=== PATIENT | male | born 1975 | race Caucasian/White ===

== ENCOUNTER 2019-02-26 06:06 | Day surgery (SDC) | payer BC ==
[~2019-02-26] VITALS: Ht 175.3 cm; Wt 71.6 kg
[~2019-02-26 06:06] MED LIST: BENADRYL25 MG PO; CLOB.05TO TOP; CYCL10 PO; FAMO10 PO; NAPROXEN SODIU550 MG PO
--- NOTE | 2019-02-26 12:24 | NUR ---
02/26/19 1224 Trudy Vigil PT IS RESTING IN THE RECLINER, ACCOMPANIED BY HIS . AFTER TRANSERING TO THE CHAIR, PT STATED THAT HE WAS NAUSEATED. RN TREATED WITH IV ZOFRAN PER ORDERS AT 1206. VSS AT THIS TIME. PT STATES NAUSEA IS "BETTER NOW." PT STATES HIS PAIN IS 3/10 AND TOLERABLE AT THIS TIME. RN HAS PROVIDED SNACKS AND WATER. PT IS RESTING WITH EYES CLOSED, COOL WASH CLOTH ON THE FOREHEAD. CALL LIGHT IN REACH.
== END 2019-02-26 13:58 | disposition home or self-care (01) ==
LOC: ORSCSDS 06:06
PROVIDERS: Otolaryngology
PROC: 0NR507Z Replacement of Right Temporal Bone with Autologous Tissue Substitute, Open Approach (ICD-10-PCS; principal; 2019-02-26 07:30)
PROC: 09Q90ZZ Repair Right Auditory Ossicle, Open Approach (ICD-10-PCS; principal; 2019-02-26 07:30)
DX: H71.01 Cholesteatoma of attic, right ear (principal); E78.5 Hyperlipidemia, unspecified; E78.1 Pure hyperglyceridemia; Z87.891 Personal history of nicotine dependence; F17.220 Nicotine dependence, chewing tobacco, uncomplicated; Z79.899 Other long term (current) drug therapy
CPT/HCPCS: J1100; J2250; J2370; J2405; J2704; J2710; J3010; J7120

== ENCOUNTER 2021-06-21 06:05 | Day surgery (SDC) | payer BC ==
[~2021-06-21] VITALS: Ht 177.8 cm; Wt 67.7 kg
[~2021-06-21 06:05] MED LIST changes: +CLARITIN5 MG/5 M2 PO; +CLOBETASOL EMOL15 G2 TOP; +LIVALO2 MG PO
--- NOTE | 2021-06-21 10:04 | NUR ---
Patient up to Ambulate independently. Gait steady. Discharge instructions reviewed with patient. Patient verbalizes understanding. Copy given to patient to take home.Lungs clear T/O to Auscultation. Patient States Post-Procedure ride home has been arranged. Discharged via wheelchair to private car for ride home.
== END 2021-06-21 10:23 | disposition home or self-care (01) ==
LOC: ORSCMMR 06:05 → ORD 07:30 → ORSCMMR 07:30
PROVIDERS: Surgery
PROC: 0FT44ZZ Resection of Gallbladder, Percutaneous Endoscopic Approach (ICD-10-PCS; principal; 2021-06-21 07:30)
DX: K80.10 Calculus of gallbladder with chronic cholecystitis without obstruction (principal); K21.9 Gastro-esophageal reflux disease without esophagitis; Z87.891 Personal history of nicotine dependence; Z79.899 Other long term (current) drug therapy
CPT/HCPCS: 88304; A9270; J0690; J1100; J1885; J2250; J2405; J2704; J2710; J3010; J7120

== ENCOUNTER → 2023-01-31 | Outpatient (CLI) | payer BC | END | disposition home or self-care (01) | LOC: LAB SHORT 10:00 → LAB 10:00 | PROVIDERS: Physician Assistant Medical | DX: R14.0 Abdominal distension (gaseous) (principal) | CPT/HCPCS: 82653; 83993 ==